=== PATIENT | female | born 1935 | race Caucasian/White ===

== ENCOUNTER 2020-03-02 07:13 | Inpatient (IN) ==
[2020-03-02] MEDS ORDERED: Ondansetron 4 MG/2 ML VIAL IVP PRN (07:52)
[2020-03-02] MEDS ORDERED: Promethazine 6.25 MG in Water for inj. (sterile) 20 ML IVPB PRN (07:52)
[2020-03-02] MEDS ORDERED: *HR* OxyCODONE Immed Rel 5 MG TABLET PO PRN (07:52)
[2020-03-02] MEDS ORDERED: CeFAZolin Syr 2,000MG/20 ML 2,000 MG/20 ML SYRINGE IVPB ONE (08:20)
[2020-03-02] MEDS ORDERED: *HR* Propofol 200 MG/20 ML VIAL IVP ONE (08:23)
[2020-03-02] MEDS ORDERED: *HR* FentaNYL (PF) 100 MCG/2 ML VIAL ONE (08:23)
[2020-03-02] MEDS ORDERED: Lidocaine -MPF 2% 2 ML VIAL ONE (08:24)
[2020-03-02] MEDS ORDERED: Dexamethasone 4 MG/ML VIAL ONE (08:24)
[2020-03-02] MEDS ORDERED: *HR* Succinylcholine 200 MG/10 ML VIAL IVP ONE (08:24)
[2020-03-02] MEDS ORDERED: Ondansetron 4 MG/2 ML VIAL ONE (08:24)
[2020-03-02] MEDS: Ringers Solution, Lactated 1,000 ML IVC SCH ×2 (08:39→10:39)
[2020-03-02] MEDS ORDERED: Tranexamic Acid 1,000 MG/10 ML VIAL ONE (08:50)
[2020-03-02] MEDS ORDERED: Aspirin Enteric Coated 81 MG Tablet PO SCH (09:00)
[2020-03-02] MEDS: *HR* HYDROmorphone PF 0.5 MG/0.5 ML SYRINGE IVP PRN ×4 (10:32→10:58)
[2020-03-02] MEDS ORDERED: Acetaminophen IV 1,000 MG/100 ML BAG IVPB ONE (11:04)
[2020-03-02 11:14] LABS: Hematocrit 38.6 % (35.3-44.9); Hemoglobin 12.2 g/dL (11.5-15.4)
[2020-03-02] MEDS ORDERED: 0.9 % Sodium Chloride 1,000 ML IVC SCH (12:30)
[2020-03-02] MEDS ORDERED: Naloxone 0.4 MG/ML INJ IVP PRN (12:30)
[2020-03-02] MEDS ORDERED: *HR* OxyCODONE/APAP 5/325 TABLET PO PRN (12:30)
[2020-03-02] MEDS ORDERED: Famotidine 20 MG TABLET PO SCH (12:30)
[2020-03-02] MEDS: Cholecalciferol (D-3) 1,000 UNIT (25MCG) TABLET PO SCH (14:48)
[2020-03-02] MEDS: *HR* OxyCODONE Immed Rel 5 MG TABLET PO PRN ×2 (17:21→22:35)
[2020-03-02] MEDS: Gabapentin 300 MG CAPSULE PO SCH (17:22)
[2020-03-02] MEDS: CeFAZolin 2 GM/120 ML BAG IVPB SCH ×2 (17:22→23:41)
[2020-03-02] MEDS: lisinopriL 5 MG TABLET PO SCH (17:22)
[2020-03-03 06:06] VITALS: BP 160/72
[2020-03-03] MEDS: lisinopriL 5 MG TABLET PO SCH (07:35)
[2020-03-03] MEDS: Gabapentin 300 MG CAPSULE PO SCH (07:36)
[2020-03-03] MEDS: Cholecalciferol (D-3) 1,000 UNIT (25MCG) TABLET PO SCH (07:36)
[2020-03-03] MEDS: *HR* OxyCODONE Immed Rel 5 MG TABLET PO PRN (07:38)
[2020-03-03] MEDS ORDERED: Famotidine 20 MG TABLET PO SCH ×2 (09:00)
[2020-03-03] MEDS ORDERED: Aspirin Enteric Coated 81 MG Tablet PO SCH (09:00)
== END 2020-03-03 11:50 | disposition home health service (06) | DRG 482 ==
LOC: SAMDAY 07:13 → EDSDCBED 07:14 → CDU 07:41 → 3NENU 12:30 → SAMDAY 03-03 11:50 → 3NENU 03-06 14:52
PROVIDERS: ADMIT Orthopaedic Surgery; ATTEND Orthopaedic Surgery